=== PATIENT | male | born 1985 | race Caucasian/White ===

== ENCOUNTER 2019-12-22 12:54 | Emergency (ER) | payer OTHER ==
[~2019-12-22] VITALS: Ht 185.4 cm; Wt 97.5 kg
[~2019-12-22 12:54] MED LIST: ALBU90OI INH; AMOCLA875 PO; AMOX500 PO; Augmentin 875-1 EACH PO; Bactrim 400-801 EACH PO; Bactrim Ds Tab1 EACH PO; CEPH500 PO; CYCL10 PO; Colace100 MG PO; DOXY100 PO; GUAI600T33 PO; HYDACE25S PR; HYDACE5 PO; HYDCHL25 PO; HYDCHL50 PO; IBUHYD PO; IBUP600 PO; IBUP800; IBUP800 PO; Keflex500 MG PO; LEVSOD75 PO; Lisinopril-Hct1 EAC4 PO; Magnesium Citr296 ML PO; NAPR500 PO; Naprosyn500 MG PO; Norco 5-325 Ta1 EACH PO; OXYACE5T PO; PENVK250 PO; PENVK500 PO; PROM25 PO; PSEU120ER PO; Percocet 5-3251 EACH PO; Prinivil10 MG PO; RXHYDACE PO; RXONDA4ODT MM; RXTRAM50 PO; SILSUL1TC TOP; SULTRIDS PO; TRAM50 PO; Ultram50 MG PO; Veetids 500500 MG PO
[2019-12-22] MEDS ORDERED: MONDOXYNE NL100 MG PO (14:17)
== END 2019-12-22 14:57 | disposition home or self-care (01) ==
LOC: ER 12:54
DX: A74.9 Chlamydial infection, unspecified (principal); I10 Essential (primary) hypertension; Z79.899 Other long term (current) drug therapy; Z87.891 Personal history of nicotine dependence
CPT/HCPCS: 76870; 99284-25

== ENCOUNTER 2020-01-12 12:53 | Emergency (ER) | payer OTHER ==
[~2020-01-12] VITALS: Ht 185.4 cm; Wt 99.8 kg
[~2020-01-12 12:53] MED LIST changes: +MONDOXYNE NL100 MG PO
[2020-01-12] MEDS ORDERED: MONDOXYNE NL100 MG PO (14:20)
[2020-01-12 15:14] LABS: Bilirubin, Urine Neg (Neg); Blood, Urine Neg (Neg); Glucose Qualitative, Urine Neg (Neg); Ketones, Urine Neg (Neg); Leukocyte Esterase, Urine Neg (Neg); Nitrite, Urine Neg (Neg); Protein, Urine Neg (Neg); Specific Gravity, Urine 1.005 (1.003-1.022); Urobilinogen, Urine NORM (Normal)
[2020-01-12 15:20] LABS: Appearance, Urine Clear (Clear); Color, Urine Yellow (P-Yellow)
[2020-01-14 02:06] LABS: CHLAMYDIA TRACHOMATIS, NAA Negative (Negative); NEISSERIA GONORRHOEAE, NAA Negative (Negative)
== END 2020-01-12 15:23 | disposition left against medical advice (07) ==
LOC: ER 12:53
PROVIDERS: Emergency Medicine
DX: N50.812 Left testicular pain (principal); R10.32 Left lower quadrant pain; I10 Essential (primary) hypertension; Z86.14 Personal history of Methicillin resistant Staphylococcus aureus infection; Z87.891 Personal history of nicotine dependence
CPT/HCPCS: 81003; 87491; 87591; 99282

== ENCOUNTER 2020-06-30 10:09 | Emergency (ER) | payer OTHER ==
[~2020-06-30] VITALS: Ht 182.9 cm; Wt 99.8 kg
[2020-06-30 10:41] LABS: Source, Urine Clean Catch
[2020-06-30 10:44] LABS: Appearance, Urine Hazy (Clear); Bilirubin, Urine Neg (Neg); Blood, Urine Neg (Neg); Color, Urine Yellow (P-Yellow); Glucose Qualitative, Urine Neg (Neg); Ketones, Urine Neg (Neg); Leukocyte Esterase, Urine Neg (Neg); Nitrite, Urine Neg (Neg); Protein, Urine Neg (Neg); Urobilinogen, Urine NORM (Normal)
[2020-06-30 10:48] LABS: Amorphous Mod (0-Heavy); Bacteria Not Seen /hpf; Red Blood Cells, Urine 0-2 /hpf (0-2); Squamous Epithelial Cells Not Seen /hpf (Few); White Blood Cells, Urine 0-2 /hpf (0-5)
[2020-06-30] MEDS ORDERED: DOXY100 PO (11:46)
[2020-06-30] MEDS ORDERED: IBUP800 PO (11:46)
[2020-06-30] MEDS ORDERED: CODACE30 PO (11:46)
== END 2020-06-30 11:58 | disposition home or self-care (01) ==
LOC: ER 10:09
PROVIDERS: Emergency Medicine
DX: N45.1 Epididymitis (principal); I10 Essential (primary) hypertension; Z87.891 Personal history of nicotine dependence
CPT/HCPCS: 76870; 81001; 96372; 99284-25; J0696

== ENCOUNTER → 2021-01-05 | Outpatient (CLI) | payer OTHER ==
[~2021-01-05] MED LIST changes: +CODACE30 PO
[2021-01-06 09:08] LABS: HIV SCREEN 4TH GENERATION WRFX Non Reactive (Non Reactive)
[2021-01-07 00:09] LABS: HBSAG SCREEN Negative (Negative); HEP A AB, IGM Negative (Negative); HEP B CORE AB, IGM Negative (Negative); HEP C VIRUS AB <0.1 (0.0-0.9)
[2021-01-08 08:10] LABS: CHLAMYDIA BY NAA Negative (Negative); TRICH VAG BY NAA Negative (Negative)
[2021-01-08 08:43] LABS: GONOCOCCUS BY NAA Positive (Negative)
== END | disposition home or self-care (01) ==
LOC: LAB EV 11:52 → LAB SHORT 11:52
PROVIDERS: General Practice
DX: N34.2 Other urethritis (principal); Z20.2 Contact with and (suspected) exposure to infections with a predominantly sexual mode of transmission
CPT/HCPCS: 80074; 86592; 87077; 87086; 87185; 87389; 87491; 87591; 87661

== ENCOUNTER 2022-01-24 03:48 | Emergency (ER) | payer OTHER ==
[~2022-01-24] VITALS: Ht 185.4 cm; Wt 102.1 kg
[2022-01-24] MEDS ORDERED: Prednisone50 MG PO (06:41)
== END 2022-01-24 07:04 | disposition home or self-care (01) ==
LOC: ER 03:48
DX: R29.810 Facial weakness (principal); F17.210 Nicotine dependence, cigarettes, uncomplicated; Z79.899 Other long term (current) drug therapy
CPT/HCPCS: J7512

== ENCOUNTER → 2022-02-13 | Outpatient (CLI) | payer OTHER ==
[~2022-02-13] MED LIST changes: +Prednisone50 MG PO
== END | disposition home or self-care (01) ==
LOC: LAB SHORT 10:42 → LAB 10:42
DX: L02.01 Cutaneous abscess of face (principal)
CPT/HCPCS: 87070; 87075; 87077; 87186; 87205

== ENCOUNTER 2022-07-14 10:01 | Emergency (ER) | payer OTHER ==
[~2022-07-14] VITALS: Ht 185.4 cm; Wt 102.1 kg
[2022-07-14] MEDS ORDERED: NAPR500 PO (10:42)
== END 2022-07-14 11:10 | disposition home or self-care (01) ==
LOC: ER 10:01
DX: S09.90XA Unspecified injury of head, initial encounter (principal); S40.012A Contusion of left shoulder, initial encounter; I10 Essential (primary) hypertension; F17.210 Nicotine dependence, cigarettes, uncomplicated; Z86.14 Personal history of Methicillin resistant Staphylococcus aureus infection; W01.0XXA Fall on same level from slipping, tripping and stumbling without subsequent striking against object, initial encounter
CPT/HCPCS: A9270

== ENCOUNTER 2024-03-23 16:42 | Emergency (ER) | payer OTHER ==
[~2024-03-23] VITALS: Ht 185.4 cm; Wt 117.0 kg
[2024-03-23 16:57] VITALS: BP 161/112
== END 2024-03-23 18:47 | disposition home or self-care (01) ==
LOC: ER 16:42
DX: M54.31 Sciatica, right side (principal); I10 Essential (primary) hypertension; Z87.891 Personal history of nicotine dependence
CPT/HCPCS: 93971; 99283-25

== ENCOUNTER 2024-07-18 11:39 | Inpatient (IN) | payer OTHER ==
[~2024-07-18] VITALS: Ht 185.4 cm; Wt 117.9 kg
[2024-07-18] MEDS ORDERED: LEVOTHYROXINE25 MC9 PO (11:56)
[2024-07-18 12:26] LABS: BASOPHILS ABSOLUTE AUTO 0.03 K/mm3 (0.00-0.23); BASOPHILS PERCENT AUTO 0 % (0-2); EOSINOPHILS ABSOLUTE AUTO 0.09 K/mm3 (0.00-0.68); EOSINOPHILS PERCENT AUTO 1 % (0-6); Hematocrit 43.2 % (37.0-53.0); Hemoglobin 14.9 g/dL (13.5-17.5); IMMATURE GRAN ABSOLUTE AUTO 0.06 K/mm3 (0.00-0.10); IMMATURE GRAN PERCENT AUTO 1 % (0-1); LYMPHOCYTES ABSOLUTE AUTO 1.89 K/mm3 (0.84-5.20); LYMPHOCYTES PERCENT AUTO 16 % (21-46); MONOCYTES ABSOLUTE AUTO 0.96 K/mm3 (0.16-1.47); MONOCYTES PERCENT AUTO 8 % (4-13); Mean Corpuscular HGB 31.4 pg (26.0-34.0); Mean Corpuscular HGB Conc 34.5 g/dL (31.5-36.5); Mean Corpuscular Volume 91 fL (80-100); Mean Platelet Volume 9.4 fL (9.1-12.4); NEUTROPHILS ABSOLUTE AUTO 8.99 K/mm3 (1.96-9.15); NEUTROPHILS PERCENT AUTO 75 % (41-73); Platelet Count 247 K/mm3 (150-400); RDW Coefficient Variation 12.2 % (11.7-14.2); Red Blood Cell Count 4.74 M/mm3 (4.30-5.90); White Blood Cell Count 12.02 K/mm3 (4.00-11.30)
[2024-07-18 13:10] LABS: Albumin, Blood 3.5 g/dL (3.4-5.0); Albumin/Globulin Ratio 0.8 (0.8-1.8); Bilirubin, Total 1.3 mg/dL (0.1-1.0); Bun/Creatinine Ratio 12.8 (12.0-20.0); Creatinine, Blood 1.17 mg/dL (0.60-1.20); Globulin, Blood 4.3 g/dL (2.2-4.0); Total Protein, Blood 7.8 g/dL (6.4-8.2)
[2024-07-18] MEDS ORDERED: MetroNIDAZOLE 500MG/NS 100 ml 100 ML IV ONE (14:10)
[2024-07-18] MEDS ORDERED: CefTRIAXone Sodium 2,000 MG in NS 100 ML IV ONE (14:10)
[2024-07-18] MEDS ORDERED: NS 1,000 ML IV SCH ×2 (14:10→15:30)
[2024-07-18] MEDS ORDERED: Ketorolac Tromethamine 30mg Vial IV ONE (14:15)
[2024-07-18] MEDS ORDERED: Ondansetron HCl 2 MG / ML 2ML Vial IV PRN (15:10)
[2024-07-18] MEDS ORDERED: Morphine Sulfate 4 MG/1 ML Injection IV PRN ×2 (15:10→18:50)
[2024-07-18] MEDS ORDERED: FLU VACC TS2024-25(6MOS UP)/PF 45 MCG/0.5 ML SYRINGE IM SCH (15:10)
[2024-07-18] MEDS ORDERED: Ketorolac Tromethamine 30mg Vial IV PRN (15:15)
[2024-07-18 16:54] VITALS: BP 147/83
[2024-07-18] MEDS ORDERED: OMEP20ER PO (17:11)
[2024-07-18] MEDS ORDERED: CYCL10 PO (17:11)
[2024-07-18] MEDS ORDERED: DOCU100 PO (17:11)
--- NOTE | 2024-07-18 17:11 | NUR ---
Patient admitted to Surg room 31. Anxious, immediate to restroom, output of 1200 super dark tea color urine, NPO, will cont to measure I-O'S. call light explained, r.n. will do intake questions, VITALS AND WEIGHT performed. family here now.
[2024-07-18] MEDS ORDERED: Ciprofloxacin 400MG/D5 200ML 200 ML IV SCH (18:00)
[2024-07-18] MEDS ORDERED: Morphine Sulfate 4 MG/1 ML Injection IV ONE (18:45)
[2024-07-18 19:45] VITALS: BP 135/83
[2024-07-18] MEDS ORDERED: Lactobacil 2-S.Thermo-Bifido 1 1 Cap PO SCH (21:00)
[2024-07-18 23:15] VITALS: BP 126/72
[2024-07-19] MEDS ORDERED: MetroNIDAZOLE 500MG/NS 100 ml 100 ML IV SCH
[2024-07-19 01:36] VITALS: BP 135/81
[2024-07-19 04:12] VITALS: BP 131/80
[2024-07-19 04:30] LABS: BASOPHILS ABSOLUTE AUTO 0.01 K/mm3 (0.00-0.23); BASOPHILS PERCENT AUTO 0 % (0-2); EOSINOPHILS PERCENT AUTO 1 % (0-6); Hematocrit 38.3 % (37.0-53.0); Hemoglobin 13.2 g/dL (13.5-17.5); IMMATURE GRAN ABSOLUTE AUTO 0.03 K/mm3 (0.00-0.10); IMMATURE GRAN PERCENT AUTO 0 % (0-1); LYMPHOCYTES ABSOLUTE AUTO 1.36 K/mm3 (0.84-5.20); LYMPHOCYTES PERCENT AUTO 17 % (21-46); MONOCYTES ABSOLUTE AUTO 0.78 K/mm3 (0.16-1.47); MONOCYTES PERCENT AUTO 10 % (4-13); Mean Corpuscular HGB 31.1 pg (26.0-34.0); Mean Corpuscular HGB Conc 34.5 g/dL (31.5-36.5); Mean Corpuscular Volume 90 fL (80-100); Mean Platelet Volume 9.1 fL (9.1-12.4); NEUTROPHILS ABSOLUTE AUTO 5.76 K/mm3 (1.96-9.15); NEUTROPHILS PERCENT AUTO 72 % (41-73); Platelet Count 208 K/mm3 (150-400); RDW Coefficient Variation 12.2 % (11.7-14.2); RDW Standard Deviation 40.5 fL (35.1-46.3); Red Blood Cell Count 4.24 M/mm3 (4.30-5.90); White Blood Cell Count 8.04 K/mm3 (4.00-11.30)
[2024-07-19 04:52] LABS: Bun/Creatinine Ratio 16.1 (12.0-20.0); Calcium, Blood 8.1 mg/dL (8.5-10.1); Creatinine, Blood 1.12 mg/dL (0.60-1.20); Potassium, Blood 3.8 mmol/L (3.5-5.5)
[2024-07-19] MEDS ORDERED: NS 250 ML IV PRN (06:00)
--- NOTE | 2024-07-19 06:05 | NUR ---
SHIFT SUMMARY NOC. PT ADMITTED FOR ACUTE DIVERTIC WITH MICRO PERF. PT HAS BEEN NPO WITH C/O DRY MOUTH. FLUIDS AND ABX RUNNING PER EMAR. REPORTS 9/10 GUNDERSON AND 5/10 ABDOMINAL PAIN WITHOUT MOVEMENT, REPORTS 9/10 ABDOMINAL PAIN WITH MOVEMENT. PT HAD GOOD RELIEF OF PAIN WITH TORADOL. PT DENIED RELIEF WITH MORPHINE. URINE DARK TEA COLOR, KIDNEY LABS ESSENTIALLY UNCHANGED FROM ADMIT. PT HAD TEMP THIS SHIFT, IMPROVED WITH COOL CLOTH, REMOVAL OF BLANKETS, REDUCED ROOM TEMP, AND TORADOL. BED IN LOWEST POSITION, CALL LIGHT IN REACH.
[2024-07-19 07:05] VITALS: BP 129/76
[2024-07-19] MEDS ORDERED: Enoxaparin 40 MG/0.4 ML SYR SC SCH (09:00)
[2024-07-19] MEDS ORDERED: Cyclobenzaprine HCl 10 MG Tab PO PRN (13:15)
[2024-07-19 13:23] VITALS: BP 153/82
--- NOTE | 2024-07-19 16:30 | NUR ---
SHIFT SUMMARY PT DID WELL TODAY. ABD PAIN ON L SIDE SUBSIDED. PT NOTICED THAT HE COULD MOVE AROUND WITH LESS PAIN. PT LINDA CLEAR LIQUIDS FOR BREAKFAST AND LUNCH. ADVANCED DIET TO FULL LIQUID FOR DINNER. PT RECEIVED ABX PER EMAR AND REQUIRED NO NARCOTIC PAIN MEDICATION, BUT DID RECEIVE TORADOL X1 FOR A HEADACHE. PLAN FOR POSSIBLE DISCHARGE TOMORROW, IF PT IS DOING WELL PER DR BEAULIEU.
[2024-07-19 19:58] VITALS: BP 140/88
[2024-07-20 05:12] VITALS: BP 136/89
--- NOTE | 2024-07-20 05:39 | NUR ---
SHIFT SUMMARY PT ABLE TO REST DURING THE SHIFT. DENIES ANY PAIN. TOLERATING PO INTAKE. VOIDING. IND IN THE ROOM. PLAN TO D/C HOME TODAY. VSS. NO OTHER CONCERNS AT THIS TIME, CALL LIGHT WITHIN REACH
[2024-07-20] MEDS ORDERED: Levothyroxine Sodium 0.025 MG Tab PO SCH (06:00)
[2024-07-20] MEDS ORDERED: Omeprazole 20 MG CapCR PO SCH (06:00)
[2024-07-20 07:30] VITALS: BP 140/89
[2024-07-20] MEDS ORDERED: MetroNIDAZOLE 500 MG Tab PO ONE (12:00)
[2024-07-20] MEDS ORDERED: CIPR500 PO (12:01)
[2024-07-20] MEDS ORDERED: VISBIOME 112.51 EACH PO (12:02)
[2024-07-20] MEDS ORDERED: METR500 PO (12:02)
--- NOTE | 2024-07-20 12:19 | NUR ---
DISCHARGE: PACKET PRINTED AND PT EDUCATED. SCRIPTS SENT TO [facility]. PT LEFT UNIT AT 1218
== END 2024-07-20 12:20 | disposition home or self-care (01) | DRG 392 ==
LOC: ER 11:39 → ERHOLD 15:06 → SURS 16:58
PROVIDERS: Physician Assistant; ADMIT Family Medicine
DX: K57.32 Diverticulitis of large intestine without perforation or abscess without bleeding (principal); I10 Essential (primary) hypertension; E03.9 Hypothyroidism, unspecified; Z90.49 Acquired absence of other specified parts of digestive tract; Z87.891 Personal history of nicotine dependence; Z79.890 Hormone replacement therapy; Z86.14 Personal history of Methicillin resistant Staphylococcus aureus infection
CPT/HCPCS: 36415; 74177; 80048; 80053; 83605; 85025; 87040; 96365-59; 96375; 99285-25; A9270; J0696; J0744; J1885; J2270; J7030; J7050; Q9967

== ENCOUNTER 2024-12-27 05:22 | Emergency (ER) | payer OTHER ==
[~2024-12-27] VITALS: Ht 185.4 cm; Wt 117.9 kg
[~2024-12-27 05:22] MED LIST changes: +CIPR500 PO; +DOCU100 PO; +LEVOTHYROXINE25 MC9 PO; +METR500 PO; +OMEP20ER PO; +VISBIOME 112.51 EACH PO
[2024-12-27 06:30] VITALS: BP 135/93
[2024-12-27] MEDS ORDERED: Lactulose 20 GM/30 ML UDC PO ONE (06:50)
[2024-12-27] MEDS ORDERED: Bisacodyl 10 MG Supp PR ONE (06:50)
[2024-12-27 06:57] LABS: BASOPHILS ABSOLUTE AUTO 0.04 K/mm3 (0.00-0.23); BASOPHILS PERCENT AUTO 1 % (0-2); EOSINOPHILS ABSOLUTE AUTO 0.15 K/mm3 (0.00-0.68); EOSINOPHILS PERCENT AUTO 3 % (0-6); Hematocrit 47.3 % (37.0-53.0); Hemoglobin 15.9 g/dL (13.5-17.5); IMMATURE GRAN PERCENT AUTO 0 % (0-1); LYMPHOCYTES ABSOLUTE AUTO 2.05 K/mm3 (0.84-5.20); LYMPHOCYTES PERCENT AUTO 45 % (21-46); MONOCYTES ABSOLUTE AUTO 0.56 K/mm3 (0.16-1.47); MONOCYTES PERCENT AUTO 12 % (4-13); Mean Corpuscular HGB 30.9 pg (26.0-34.0); Mean Corpuscular HGB Conc 33.6 g/dL (31.5-36.5); Mean Corpuscular Volume 92 fL (80-100); Mean Platelet Volume 9.1 fL (9.1-12.4); NEUTROPHILS PERCENT AUTO 39 % (41-73); Platelet Count 264 K/mm3 (150-400); RDW Coefficient Variation 12.8 % (11.7-14.2); RDW Standard Deviation 43.3 fL (35.1-46.3); Red Blood Cell Count 5.15 M/mm3 (4.30-5.90)
[2024-12-27 07:16] LABS: Albumin, Blood 3.6 g/dL (3.4-5.0); Bilirubin, Total 0.5 mg/dL (0.1-1.0); Bun/Creatinine Ratio 15.2 (12.0-20.0); Calcium, Blood 8.6 mg/dL (8.5-10.1); Creatinine, Blood 1.05 mg/dL (0.60-1.20); Globulin, Blood 3.7 g/dL (2.2-4.0); Potassium, Blood 5.2 mmol/L (3.5-5.5); Total Protein, Blood 7.3 g/dL (6.4-8.2)
== END 2024-12-27 07:32 | disposition home or self-care (01) ==
LOC: ER 05:22
PROVIDERS: Student in an Organized Health Care Education/Training Program
DX: K59.00 Constipation, unspecified (principal); R10.32 Left lower quadrant pain; I10 Essential (primary) hypertension; E03.9 Hypothyroidism, unspecified; Z79.890 Hormone replacement therapy; Z79.899 Other long term (current) drug therapy; Z87.891 Personal history of nicotine dependence
CPT/HCPCS: 80053; 83690; 85025; 99284; A9270

== ENCOUNTER 2025-08-07 11:10 | Emergency (ER) | payer BC ==
[~2025-08-07] VITALS: Ht 188 cm; Wt 108.9 kg
[2025-08-07 11:28] VITALS: BP 147/82
[2025-08-07 11:41] LABS: BASOPHILS ABSOLUTE AUTO 0.04 K/mm3 (0.00-0.23); BASOPHILS PERCENT AUTO 1 % (0-2); EOSINOPHILS ABSOLUTE AUTO 0.21 K/mm3 (0.00-0.68); EOSINOPHILS PERCENT AUTO 4 % (0-6); Hematocrit 44.1 % (37.0-53.0); Hemoglobin 15.4 g/dL (13.5-17.5); IMMATURE GRAN ABSOLUTE AUTO 0.01 K/mm3 (0.00-0.10); IMMATURE GRAN PERCENT AUTO 0 % (0-1); LYMPHOCYTES ABSOLUTE AUTO 1.67 K/mm3 (0.84-5.20); LYMPHOCYTES PERCENT AUTO 28 % (21-46); MONOCYTES ABSOLUTE AUTO 0.30 K/mm3 (0.16-1.47); MONOCYTES PERCENT AUTO 5 % (4-13); Mean Corpuscular HGB Conc 34.9 g/dL (31.5-36.5); Mean Corpuscular Volume 90 fL (80-100); NEUTROPHILS ABSOLUTE AUTO 3.66 K/mm3 (1.96-9.15); NEUTROPHILS PERCENT AUTO 62 % (41-73); NRBC ABSOLUTE 0.00 K/mm3 (0.00-0.02); NRBC Auto 0.0 /100 WBC (0.0-0.2); Platelet Count 322 K/mm3 (150-400); RDW Coefficient Variation 11.9 % (11.7-14.2); RDW Standard Deviation 39.3 fL (35.1-46.3)
[2025-08-07 12:20] LABS: Alanine Aminotransfer (ALT/SGP 35.0 U/L (12-78); Albumin, Blood 4.0 g/dL (3.4-5.0); Albumin/Globulin Ratio 1.1 (0.8-1.8); Anion Gap 9.0 mmol/L (3-11); Aspartate Aminotrans (AST/SGOT 29.0 U/L (12-37); Bilirubin, Total 0.7 mg/dL (0.1-1.0); Blood Urea Nitrogen 19.0 mg/dL (8-24); CO2, Blood 26.0 mmol/L (21-32); Calcium, Blood 9.3 mg/dL (8.5-10.1); Chloride, Blood 103.0 mmol/L (98-108); Creatinine, Blood 0.88 mg/dL (0.60-1.20); Globulin, Blood 3.7 g/dL (2.2-4.0); Glucose, Blood 146.0 mg/dL (70-99); Potassium, Blood 3.6 mmol/L (3.5-5.5); Sodium, Blood 134.0 mmol/L (136-145); Total Protein, Blood 7.7 g/dL (6.4-8.2)
== END 2025-08-07 13:57 | disposition home or self-care (01) ==
LOC: ER 11:10
PROVIDERS: Physician Assistant
DX: R06.02 Shortness of breath (principal); R20.0 Anesthesia of skin; R20.2 Paresthesia of skin; I10 Essential (primary) hypertension; Z87.891 Personal history of nicotine dependence; Z79.890 Hormone replacement therapy; Z79.899 Other long term (current) drug therapy
CPT/HCPCS: 71046; 80053; 83690; 84484; 85025; 93005; 93010; 99285-25